=== PATIENT | male | born 1965 | race African-American/Black ===

== ENCOUNTER 2018-07-29 21:44 | Emergency (ER) | payer OTHER ==
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
--- NOTE | 2018-07-29 23:15 | CT ---
EXAM: CT Head Without Intravenous Contrast CLINICAL HISTORY: ITS.REASON CT Reason: Pain TECHNIQUE: Axial computed tomography images of the head/brain without intravenous contrast. CTDI is 25.8 mGy and DLP is 791.5 mGy-cm. This CT exam was performed using one or more of the following dose reduction techniques: automated exposure control, adjustment of the mA and/or kV according to patient size, and/or use of iterative reconstruction technique. COMPARISON: None. FINDINGS: Brain: Unremarkable. No hemorrhage. No significant white matter disease. No edema. Ventricles: Unremarkable. No ventriculomegaly. Bones/joints: Unremarkable. No acute fracture. Soft tissues: Unremarkable. Sinuses: Completely opacified ethmoid sinuses and left maxillary sinus. Scattered mucosal thickening throughout the rest of the paranasal sinuses. Notably, there is thickening and sclerosis of the maxillary sinus marcus compatible with chronic sinusitis. Mastoid air cells: Trace right mastoid tip effusion. Auditory system: Soft tissue in the left external auditory canal most likely represents cerumen. Orbits: Right periorbital hematoma with soft tissue along the posterior aspect of the globe and retrobulbar fat stranding compatible with retrobulbar hematoma. IMPRESSION: 1. No intracranial hemorrhage or other acute intracranial abnormality. 2. Right periorbital hematoma with soft tissue along the posterior aspect of the globe and retrobulbar fat stranding compatible with retrobulbar hematoma. EXAM: CT Cervical Spine Without Intravenous Contrast CLINICAL HISTORY: ITS.REASON CT Reason: Pain TECHNIQUE: Axial computed tomography images of the cervical spine without intravenous contrast. CTDI is 12.5 mGy and DLP is 348.3 mGy-cm. This CT exam was performed using one or more of the following dose reduction techniques: automated exposure control, adjustment of the mA and/or kV according to patient size, and/or use of iterative reconstruction technique. COMPARISON: None. FINDINGS: Vertebrae: Unremarkable. No acute fracture. Discs/spinal canal/neural foramina: Multilevel degenerative disc disease and facet arthrosis is seen throughout the cervical spine which yields varying degrees of foraminal narrowing. There is no high-grade spinal canal stenosis. Soft tissues: Unremarkable. Vasculature: Atherosclerotic calcifications in the carotid bifurcations. IMPRESSION: No fracture or traumatic malalignment of the cervical spine.
--- NOTE | 2018-07-29 23:20 | CT ---
EXAM: CT Maxillofacial Without Intravenous Contrast CLINICAL HISTORY: ITS.REASON CT Reason: Pain TECHNIQUE: Axial computed tomography images of the face without intravenous contrast. CTDI is 25.8 mGy and DLP is 791.5 mGy-cm. This CT exam was performed using one or more of the following dose reduction techniques: automated exposure control, adjustment of the mA and/or kV according to patient size, and/or use of iterative reconstruction technique. COMPARISON: CT head 07/29/2018. FINDINGS: Bones/joints: No acute fracture. Soft tissues: Unremarkable. Orbits: Right proptosis with periorbital and retrobulbar hematoma. Sinuses: Completely opacified ethmoid sinuses and left maxillary sinus as well as scattered mucosal thickening throughout the remainder the paranasal sinuses and thickening and sclerosis of the marcus of the maxillary sinuses. Dental: There is a small carious erosion with periapical abscess of tooth 12. IMPRESSION: 1. No facial fracture. 2. Right proptosis with periorbital and retrobulbar hematoma. 3. There is a small carious erosion with periapical abscess of tooth 12. Recommend dental examination.
[2018-07-29] MEDS ORDERED: PROPARACAINE 0.5% OPHTH DROPS 15 ML BTL RIGHT EYE STA (23:38)
[2018-07-29 23:55] VITALS: BP 145/98; PULSE 94; RESP 19; TEMP 98.1
== END 2018-07-30 00:50 | disposition other institution (70) ==
LOC: EC 21:44
DX: S00.11XA Contusion of right eyelid and periocular area, initial encounter (principal); H05.20 Unspecified exophthalmos; K04.7 Periapical abscess without sinus; Y04.0XXA Assault by unarmed brawl or fight, initial encounter
CPT/HCPCS: 70450; 70486; 72125; 99285

== ENCOUNTER → 2022-08-10 | Outpatient (CLI) | payer OTHER ==
--- NOTE | 2022-08-10 16:39 | US ---
EXAMINATION TYPE: US venous doppler duplex LE RT DATE OF EXAM: 08/10/2022 3:40 PM COMPARISON: NONE CLINICAL INDICATION: Male, 57 years old with history of R60.9 EDEMA; swollen ankle 1 month ago, getti ng better, no h/o dvt SIDE PERFORMED: Right TECHNIQUE: The lower extremity deep venous system is examined utilizing real time linear array sonog doug with graded compression, doppler sonography and color-flow sonography. VESSELS IMAGED: Common Femoral Vein Deep Femoral Vein Greater Saphenous Vein * Femoral Vein Popliteal Vein Small Saphenous Vein * Proximal Calf Veins (* superficial vessels) Right Leg: Negative for DVT, Grayscale, color doppler, spectral doppler imaging performed of the donita p veins of the lower extremities. There is normal flow, compressibility, vascular waveforms. Streaky subcutaneous changes edema noted. IMPRESSION: * No evidence for DVT. * Streaky subcutaneous edema.
== END | disposition home or self-care (01) ==
LOC: RADUSWWP 15:24
DX: R60.9 Edema, unspecified (principal)